=== PATIENT | female | born 1990 | race Caucasian/White ===

== ENCOUNTER 2017-04-30 10:25 | Emergency (ER) | payer OTHER ==
[~2017-04-30] VITALS: Ht 165.1 cm; Wt 60.0 kg
[~2017-04-30 10:25] MED LIST: CYCL-36 PO; DICL75 PO; Z.0.NO CURRENT MEDS
[2017-04-30 10:29] VITALS: BP 127/68; PULSE 82; RESP 16; TEMP 97.8; O2SAT 100
--- NOTE | 2017-04-30 11:30 | RADRPT ---
EXAM DATE/TIME: 04/30/2017 10:42 [place] COMPARISON: No previous studies available for comparison. INDICATIONS : Evaluate left wrist for trauma, fell MEDICAL HISTORY : None. SURGICAL HISTORY : None. ENCOUNTER: Initial ACUITY: 1 day PAIN SCORE: 0/10 LOCATION: Left Wrist FINDINGS: Three view examination of the left wrist demonstrates no soft tissue swelling, dislocation, or fractu re. The carpal bones are in normal alignment. The joint spaces are maintained. Bony mineralization is normal. CONCLUSION: No acute disease. Daniel Brandt MD on April 30, 2017 at 11:27 Board Certified Radiologist. This report was verified electronically.
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
[2017-04-30] MEDS ORDERED: ACETAMINOPHEN 500 MG CPLT PO ONE (12:15)
== END 2017-04-30 12:35 | disposition home or self-care (01) ==
LOC: NEPD 10:25
DX: S50.12XA Contusion of left forearm, initial encounter (principal); X58.XXXA Exposure to other specified factors, initial encounter
CPT/HCPCS: 73110; 99283